=== PATIENT | female | born 1930 | race Caucasian/White ===

== ENCOUNTER 2018-01-14 09:39 | Inpatient (IN) | payer OTHER ==
[~2018-01-14] VITALS: Ht 154.9 cm; Wt 42.6 kg
[~2018-01-14 09:39] MED LIST: ASPIR 8181 MG PO; ATIVAN1 MG PO; CARVEDILOL3.125 MG PO; COZAAR 50 MG TA50 M2 PO; LEVO-T88 MCG PO; SIMVASTATIN40 MG PO; VITAMIN D-32000 UNI1 PO
[2018-01-14 09:49] VITALS: BP 146/79
[2018-01-14 09:57] LABS: ABSOLUTE BASOPHILS 0.1 thou/uL (0.0-0.2); ABSOLUTE LYMPHOCYTES 2.9 thou/uL (0.8-5.3); ABSOLUTE MONOCYTES 0.6 thou/uL (0.0-1.2); ABSOLUTE NEUTROPHILS 5.4 thou/uL (1.6-8.1); BASOPHILS 1.2 %; EOSINOPHILS 0.4 %; HEMATOCRIT 39.3 % (37.0-47.0); HEMOGLOBIN 13.2 gm/dL (12.0-15.0); LYMPHOCYTES 32.4 %; MCH 33.2 pg (26.0-34.0); MCHC 33.6 g/dL (28.0-37.0); MCV 98.6 fL (80.0-100.0); MONOCYTES 6.2 %; MPV 7.4 fl. (7.2-11.1); NUCLEATED RBCS 0 /100WBC; PLATELET COUNT* 241 thou/uL (150-400); POLYS 59.8 %; RBC 3.98 mil/uL (4.20-5.00); RDW-CV 14.6 % (10.5-14.5)
[2018-01-14] MEDS ORDERED: ZOCOR20 MG PO (10:04)
[2018-01-14] MEDS ORDERED: VICODIN HP 10-1 EAC1 PO (10:05)
[2018-01-14] MEDS ORDERED: XARELTO15 MG PO (10:05)
[2018-01-14] MEDS ORDERED: MELATONIN5 M1 PO (10:05)
[2018-01-14 10:06] LABS: APTT 31.5 Seconds (25.0-31.3); CALCIUM 8.4 mg/dL (8.5-10.1); CREATININE 1.4 mg/dL (0.6-1.3); INR 1.1; PROTIME 10.9 Seconds (9.20-11.50)
[2018-01-14 10:26] LABS: ALBUMIN 3.5 g/dL (3.4-5.0); CK-MB MASS 34.7 ng/mL (<0.5-3.6); MAGNESIUM 1.9 mg/dL (1.8-2.4); TOTAL BILIRUBIN 0.5 mg/dL (<0.1-1.0); TOTAL PROTEIN 6.7 g/dL (6.4-8.2); TROPONIN-I LEVEL 0.1 ng/mL (<0.06)
[2018-01-14 11:47] VITALS: BP 130/82
[2018-01-14 12:10] VITALS: BP 166/91
[2018-01-14 15:53] VITALS: BP 117/67
[2018-01-14 20:00] VITALS: BP 156/94
[2018-01-14 23:34] VITALS: BP 122/60
[2018-01-15 03:47] VITALS: BP 104/63
[2018-01-15 08:09] VITALS: BP 125/71
[2018-01-15 11:37] VITALS: BP 154/82
--- NOTE | 2018-01-15 13:52 | 2DMMODE ---
[place] [address] 2 D/M-MODE ECHOCARDIOGRAM Name: YADIRA PERALTA Room: [facility] IN [facility]#: [id number] Admission: 01/14/18 Attend Phys: Alvarez Oneil Discharge: Date of : [birth year] Date of Service: 01/15/18 1352 Report #: [id number] THIS REPORT FOR: //name// APPROVED REPORT Study performed: 01/15/2018 10:56:54 EXAM: Comprehensive 2D, Doppler, and color-flow Echocardiogram Patient Location: In-Patient Room #: [facility] Status: routine BSA: 1.38 HR: 61 bpm BP: 125/71 mmHg Rhythm: NSR Other Information Study Quality: Good Indications Congestive Heart Failure Atrial Fibrillation Dyspnea 2D Dimensions LVEF(%): 66.19 (>50%) IVSd: 10.63 (7-11mm) LVOT Diam: 17.39 (18-24mm) LVDd: 36.66 mm PWd: 8.87 (7-11mm) Ascending Ao: 29.33 (22-36mm) LVDs: 23.55 (25-40mm) Aortic Root: 29.75 mm Sarmiento's LVEF: 66.19 % Volumes Left Atrial Volume (Systole) LA ESV Index: 28.30 mL/m2 Aortic Valve AoV Peak Herber.: 1.02 m/s AO Peak Gr.: 4.15 mmHg LVOT Max P.82 mmHg AO Mean Gr.: 2.47 mmHg LVOT Mean P.89 mmHg LVOT Max V: 0.98 m/s AO V2 VTI: 18.63 cm LVOT Mean V: 0.63 m/s HALIE (VTI): 2.48 cm2 LVOT V1 VTI: 19.42 [place] [address] 2 D/M-MODE ECHOCARDIOGRAM Name: YADIRA PERALTA Room: [address] IN .R.#: [id number] Admission: 01/14/18 Attend Phys: Alvarez Oneil Discharge: Date of : 11/10/[birth year] Date of Service: 01/15/18 1352 Report #: [id number] Mitral Valve E/A Ratio: 0.39 MV Decel. Time: 249.06 ms MV E Max Herber.: 0.50 m/s MV PHT: 72.23 ms MVA (PHT): 3.05 cm2 TDI E/Lateral E': 7.14 E/Medial E': 8.33 Medial E' Herber.: 0.06 m/s Lateral E' Herber.: 0.07 m/s Pulmonary Valve PV Peak Herber.: 0.61 m/s PV Peak Gr.: 1.46 mmHg Tricuspid Valve TR Peak Gr.: 20.33 mmHg RVSP: 25.00 mmHg Left Ventricle The left ventricle is normal size. There is normal LV segmental wall motion. There is normal left ventricular wall thickness. Left ventricular systolic function is normal. The left ventricular ejection fraction is within the normal range. LVEF is 60-65%. Grade I - abnormal relaxation pattern. Right Ventricle The right ventricle is normal size. The right ventricular systolic function is normal. Pacemaker lead is present in the right ventricle. Atria The left atrium size is normal. The right atrium size is normal. Aortic Valve Mild aortic valve sclerosis. No aortic regurgitation is present. There is no aortic valvular stenosis. Mitral Valve Moderate mitral annular calcification. Trace mitral regurgitation. No evidence of mitral valve stenosis. Tricuspid Valve The tricuspid valve is normal in structure. Mild tricuspid regurgitation. The RVSP is ____25___ [place] [address] 2 D/M-MODE ECHOCARDIOGRAM Name: FABIANYADIRA Room: [address] IN M.R.#: [id number] Admission: 01/14/18 Attend Phys: Alvarez Oneil Discharge: Date of : 11/10/[birth year] Date of Service: 01/15/18 1352 Report #: [id number] The pulmonary valve is normal in structure. There is no pulmonic valvular regurgitation. Great Vessels The aortic root is normal in size. IVC is normal in size and collapses with >50% inspiration Pericardium There is no pericardial effusion. <Conclusion> The left ventricle is normal size. There is normal left ventricular wall thickness. Left ventricular systolic function is normal. The left ventricular ejection fraction is within the normal range. LVEF is 60-65%. Grade I - abnormal relaxation pattern. The right ventricle is normal size. The left atrium size is normal. Mild aortic valve sclerosis. No aortic regurgitation is present. There is no aortic valvular stenosis. Moderate mitral annular calcification. Trace mitral regurgitation. No evidence of mitral valve stenosis. The tricuspid valve is normal in structure. Mild tricuspid regurgitation. The RVSP is ____25___ mmHg. IVC is normal in size and collapses with >50% inspiration There is no pericardial effusion. There is normal LV segmental wall motion. <ELECTRONICALLY SIGNED> By: Magan Blackmon MD, FACC 01/15/18 1352 135 135 Magan Blackmon MD, FACC /INF
--- NOTE | 2018-01-15 14:07 | EKG ---
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: Kelsie DING : 1930 Requested By: Silvio Vanegas Order Number: [id number] MD: Magan Blackmon Measurements Intervals [place] Rate: 78 P: -1 SD: 68 QRS: -60 QRSD: 128 T: 125 QT: 423 QTc: 482 Interpretive Statements Atrial-ventricular dual-paced rhythm No further analysis attempted due to paced rhythm Compared to ECG 08/23/2017 08:43:59 No significant changes Electronically Signed On 01-15-2018 14:07:08 CDT by Magan Blackmon [email or web address] <ELECTRONICALLY SIGNED> By: Magan Blackmon MD, [facility] 01/15/18 1407 0947 0947 Magan Blackmon MD, [facility] /EPI
--- NOTE | 2018-01-15 14:27 | EKG ---
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: 27 : 1930 Requested By: Dallas Groves Order Number: [id number] Anupam REESE: Magan Blackmon Measurements Intervals [place] Rate: 61 P: 8 MA: 214 QRS: -52 QRSD: 114 T: 117 QT: 464 QTc: 468 Interpretive Statements Atrial-sensed ventricular-paced complexes No further analysis attempted due to paced rhythm Compared to ECG 08/23/2017 08:43:59 No significant changes Electronically Signed On 01-15-2018 14:27:18 CDT by Magan Blackmon [email or web address] <ELECTRONICALLY SIGNED> By: Magan Blackmon MD, [facility] 01/15/18 1427 0821 0 Magan Blackmon MD, [facility] /EPI
[2018-01-15 15:40] VITALS: BP 118/68
[2018-01-15 23:00] VITALS: BP 97/59
[2018-01-16 04:00] VITALS: BP 96/57
[2018-01-16 08:28] VITALS: BP 127/75
[2018-01-16 12:27] VITALS: BP 114/60
[2018-01-16] MEDS ORDERED: MARINOL2.5 MG PO (14:16)
[2018-01-16 14:36] VITALS: BP 114/60
[2018-01-16] MEDS ORDERED: SORINE 80 MG TA80 M1 PO (14:44)
--- NOTE | 2018-01-17 09:11 | EKG ---
[place] [address] ELECTROCARDIOGRAM REPORT Name: YADIRA PERALTA Room: [address] DIS IN M.R.#: [id number] Admission: 01/14/18 Attend Phys: Alvarez Coleman, Discharge: 01/16/18 Date of : [birth year]/10/[birth year] Report #: [id number] THIS REPORT FOR: //name// [facility] Test Date: 2018-01-16 Test Time: 08:21:40 Pat Name: YADIRA PERALTA Department: Room: [address] Gender: F Top Polisher: : 1930 Requested By: Dallas Groves Order Number: [id number] Anupam MD: Dallas Groves Measurements Intervals [place] Rate: 58 P: 47 [place]: 151 QRS: -75 QRSD: 134 T: 85 QT: 515 QTc: 506 Interpretive Statements Atrial-ventricular dual-paced rhythm No further analysis attempted due to paced rhythm Baseline wander in lead(s) V6 Compared to ECG 01/15/2018 08:21:25 Atrial-sensed ventricular-paced complex(es) or rhythm no longer present Electronically Signed On 01-17-2018 9:11:05 CDT by Dallas Groves [email or web address] <ELECTRONICALLY SIGNED> By: Dallas Groves MD, FACC 01/17/18910 0 0 Dallas Groves MD, FACC /EPI
--- NOTE | 2018-01-22 12:50 | CON ---
[address] [address] CONSULTATION Name: YADIRA PERALTA Room: [address] IN M.R.#: [id number] Admission: 01/14/18 Attend Phys: Alvarez Coleman, Discharge: 01/16/18 Date of : [birth year]/10/[birth year] Report #: [id number] THIS REPORT FOR: //name// CC: Jorge Coleman TYPE OF REPORT: Cardiology consultation. INDICATION: Paroxysmal atrial fibrillation. 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 The patient was recently seen in the office and found to have new-onset atrial flutter. With this, she had significant weakness and dyspnea. She was scheduled to be electively admitted to the hospital today for sotalol loading. She presented to the Emergency Room yesterday stating her weakness had become far worse and more profound and was admitted to the hospital at that time. She has been started on sotalol. She is now in an AV sequentially paced rhythm by monitor. She states she feels better already. She has been started on anticoagulant. She is without cardiac complaint at this time. PAST MEDICAL HISTORY: 1. AV block status post dual-chamber pacemaker placement. 2. Essential hypertension. 3. Hyperlipidemia. 4. Carotid disease. 5. History of SVT remotely. PAST SURGICAL HISTORY: 1. Previous cholecystectomy. 2. Previous hysterectomy. FAMILY HISTORY: The patient's father had a heart attack. SOCIAL HISTORY: The patient is a lifelong nonsmoker. She does not drink alcohol. ALLERGIES: SULFA and CEFDINIR. CURRENT MEDICATIONS: Carvedilol 3.125 mg p.o. b.i.d., vitamin D 2000 units 1 daily, Vicodin 10/300 q. 4-6 hours p.r.n., levothyroxine 88 mcg daily, lorazepam 1 mg at bedtime, losartan 100 mg daily, melatonin 5 mg as directed, Xarelto 15 mg daily and simvastatin 20 mg at bedtime. REVIEW OF SYSTEMS: She reports a decreased appetite [place] [address] CONSULTATION Name: YADIRA PERALTA HELENA Room: [address]#: [id number] Admission: 01/14/18 Attend Phys: Alvarez Coleman, Discharge: 01/16/18 Date of : [birth year]/10/[birth year] Report #: [id number]. She reports dyspnea on exertion. She reports a cough that is nonproductive and shortness of breath. She reports dizziness and lightheadedness. A 14-point review of systems was otherwise unremarkable. PHYSICAL EXAMINATION: VITAL SIGNS: Blood pressure 118/68 and pulse 60 and regular. GENERAL: This is a pleasant elderly female, in no distress. Mood and affect appropriate. HEENT: Extraocular muscles intact. Mucous membranes are moist. NECK: Shows no jugular venous distention. There are no carotid bruits. CHEST: Reveals clear lung sounds without wheezes or rales. CARDIAC: Reveals a regular rhythm without gallop or murmur. ABDOMEN: Reveals normal bowel sounds. The abdomen is soft and nontender. EXTREMITIES: Shows no edema. Peripheral pulses palpable. SKIN: Warm and dry. IMPRESSION AND RECOMMENDATIONS: 1. New onset/paroxysmal atrial flutter. The patient is now in sinus rhythm on sotalol. Continue sotalol loading. Repeat EKG in a.m. and plan for discharge if her EKG remained stable. 2. Status post dual-chamber pacemaker placement for heart block. Remote interrogation shows normal function. 3. Hypertension. Blood pressure adequately controlled presently. We will follow. 4. Hyperlipidemia. Continue current statin agent. 5. Hypothyroidism, on replacement therapy. <ELECTRONICALLY SIGNED> By: Dallas Groves MD, FACC 01/22/18 1250 1651 2214Micalbertina Groves MD, FACC /nt
== END 2018-01-16 15:00 | disposition home health service (06) | DRG 309 ==
LOC: M.ERS 09:39 → M.TBA-ER 10:23 → M.2W 10:23
PROVIDERS: Family Medicine; ADMIT Family Medicine
DX: I48.0 Paroxysmal atrial fibrillation (principal); D68.59 Other primary thrombophilia; Z88.2 Allergy status to sulfonamides; I48.92 Unspecified atrial flutter; I49.5 Sick sinus syndrome; K21.9 Gastro-esophageal reflux disease without esophagitis; M81.0 Age-related osteoporosis without current pathological fracture; E78.5 Hyperlipidemia, unspecified; E03.9 Hypothyroidism, unspecified; Z79.01 Long term (current) use of anticoagulants; J45.909 Unspecified asthma, uncomplicated; Z95.0 Presence of cardiac pacemaker; Z90.49 Acquired absence of other specified parts of digestive tract; Z90.710 Acquired absence of both cervix and uterus; Z79.899 Other long term (current) drug therapy; Z88.8 Allergy status to other drugs, medicaments and biological substances; Z82.49 Family history of ischemic heart disease and other diseases of the circulatory system; I12.9 Hypertensive chronic kidney disease with stage 1 through stage 4 chronic kidney disease, or unspecified chronic kidney disease; N18.3 Chronic kidney disease, stage 3 (moderate)

== ENCOUNTER 2019-01-15 08:38 | Inpatient (IN) | payer OTHER ==
[~2019-01-15] VITALS: Ht 157.5 cm; Wt 50.3 kg
[~2019-01-15 08:38] MED LIST changes: -COZAAR 50 MG TA50 M2 PO; +COZAAR 50 MG TA50 MG PO; +MARINOL2.5 MG PO; +MELATONIN5 M1 PO; +SORINE 80 MG TA80 M1 PO; +VICODIN HP 10-1 EAC1 PO; +XARELTO15 MG PO; +ZOCOR20 MG PO
[2019-01-15 08:41] VITALS: BP 131/74
[2019-01-15] MEDS ORDERED: LASIX 20 MG TAB20 MG PO (08:59)
[2019-01-15] MEDS ORDERED: KLOR-CON 1010 MEQ PO (08:59)
[2019-01-15] MEDS ORDERED: ELIQUIS2.5 MG PO (08:59)
[2019-01-15 09:00] LABS: ABSOLUTE BASOPHILS 0.1 thou/uL (0.0-0.2); ABSOLUTE EOSINOPHILS 0.1 thou/uL (0.0-0.7); ABSOLUTE LYMPHOCYTES 3.4 thou/uL (0.8-5.3); ABSOLUTE MONOCYTES 0.6 thou/uL (0.0-1.2); ABSOLUTE NEUTROPHILS 4.7 thou/uL (1.6-8.1); BASOPHILS 0.8 %; EOSINOPHILS 1.5 %; HEMOGLOBIN 13.3 gm/dL (12.0-15.0); MCH 33.1 pg (26.0-34.0); MCHC 33.2 g/dL (28.0-37.0); MCV 99.5 fL (80.0-100.0); MONOCYTES 6.7 %; MPV 8.6 fl. (7.2-11.1); NUCLEATED RBCS 0 /100WBC; PLATELET COUNT* 255 thou/uL (150-400); RBC 4.01 mil/uL (4.20-5.00); WBC 8.9 thou/uL (4.0-11.0)
[2019-01-15 09:05] LABS: ANION GAP 9 mmol/L (7-16); BUN 57 mg/dL (7-18); CALCIUM 9.3 mg/dL (8.5-10.1); CHLORIDE 104 mmol/L (98-107); CO2 28 mmol/L (21-32); CREATININE 2.2 mg/dL (0.6-1.3); GLUCOSE 101 mg/dL (70-99); POTASSIUM 4.6 mmol/L (3.5-5.1); SODIUM 141 mmol/L (136-145)
[2019-01-15 09:15] LABS: ALBUMIN 3.8 g/dL (3.4-5.0); ALKALINE PHOSPHATASE 49 U/L (46-116); NT-PRO BRAIN NAT PEPTIDE 1178 pg/mL (<300); SGOT 17 U/L (15-37); SGPT 20 U/L (30-65); TOTAL BILIRUBIN 0.4 mg/dL (<0.1-1.0); TOTAL PROTEIN 7.3 g/dL (6.4-8.2); TROPONIN-I LEVEL <0.06 ng/mL (<0.06)
[2019-01-15 09:30] LABS: APTT 30.1 Seconds (25.0-31.3); PROTIME 10.4 Seconds (9.20-11.50)
--- NOTE | 2019-01-15 09:33 | NUR ---
RT AT BEDSIDE ADMINISTERING BREATHING TREATMENT
[2019-01-15 15:56] VITALS: BP 93/56
--- NOTE | 2019-01-15 15:56 | NUR ---
REPORT GIVEN TO TRANG HERNANDEZ WHO IS TO ASSUME PT CARE INPATIENT NURSE.
[2019-01-15 16:10] VITALS: BP 89/54
--- NOTE | 2019-01-15 16:30 | NUR ---
PT ARRIVED TO UNIT AT APPROX 1610, A&O X4, HYPOTENSIVE, RA, LS CTA, DENIES ANY OR SOA AT THIS TIME, PANEL MAKER TRACING SINUS RHYTHM. PT ORIENTED TO ROOM AND CALL LIGHT, DAUGHTERS AT BEDSIDE.
--- NOTE | 2019-01-15 17:02 | EKG ---
[place] [address] ELECTROCARDIOGRAM REPORT Name: YADIRA PERALTA Room: [address] ADM IN .R.#: [id number] Admission: 01/15/19 Attend Phys: Fran Lozoya Discharge: Date of : [birth year] Report #: [id number] THIS REPORT FOR: //name// [facility] ED Test Date: 2019-01-15 Test Time: 08:50:16 Pat Name: YADIRA PERALTA Department: Room: [facility] Gender: F Senior Project Architect: Kelsie DING : 1930 Requested By: Miguel Encarnacion Order Number: [id number] MD: Dallas Groves Measurements Intervals [place] Rate: 74 P: 108 CA: 168 QRS: -72 QRSD: 136 T: 81 QT: 508 QTc: 564 Interpretive Statements Atrial-ventricular dual-paced rhythm No further analysis attempted due to paced rhythm Compared to ECG 01/16/2018 08:21:40 No significant changes Electronically Signed On 01-15-2019 17:02:42 CDT by Dallas Groves [email or web address] <ELECTRONICALLY SIGNED> By: Dallas Groves MD, FAC 01/15/19 1702 0850 0850 Dallas Groves MD, [facility] /EPI
[2019-01-15 20:00] VITALS: BP 123/93
[2019-01-16] VITALS: BP 91/57
[2019-01-16 04:00] VITALS: BP 129/77
--- NOTE | 2019-01-16 05:59 | NUR ---
ASSUMED PT CARE AT 1930. ASSESSMENT COMPLETED CHARTED. ABLE TO MAKE NEEDS KNOWN. NO C/O PAIN OR DISCOMFORT. RESTING IN BED WITH DAUGHTER IN ROOM ON A COT. UP WITH SBA WITH WALKER. NO C/O SOA, RA. WILL CONTINUE TO MONITOR.
[2019-01-16 08:00] VITALS: BP 119/78
--- NOTE | 2019-01-16 10:34 | EKG ---
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: [facility] : 1930 Requested By: Myles Mcfarland Order Number: [id number] Anupam MD: Magan Blackmon Measurements Intervals [place] Rate: 76 P: 161 [place]: 159 QRS: -82 QRSD: 137 T: 85 QT: 493 QTc: 555 Interpretive Statements Atrial-ventricular dual-paced rhythm No further analysis attempted due to paced rhythm Compared to ECG 01/15/2019 08:50:16 No significant changes Electronically Signed On 01-16-2019 10:34:22 CDT by Magan Blackmon [email or web address] <ELECTRONICALLY SIGNED> By: Magan Blackmon MD, [facility] 01/16/19 1034 31 31 Magan Blackmon MD, [facility] /EPI
[2019-01-16 11:42] VITALS: BP 163/90
--- NOTE | 2019-01-16 12:25 | NUR ---
MET WITH PT TO DISCUSS HOME SITUATION/DC PLANNING. PT OFF UNIT FOR TEST. DTR/KASSIE ANSWERED QUESTIONS. PT LIVE ALONE. DTRS ARE DPOA AND LIVE CLOSEBY. 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 PT USES WALKER, SHOWER BENCH AND LIFELINE. SHE DOESN'T GET OUT MUCH OTHER THEN FAMILY EVENTS OR DR/BEAUTY SHOP. PT HAS HAD HH IN PAST WITH [facility]. DTR WOULD LIKE HER TO HAVE HH AT [place] BUT NOT SURE PT WILL AGREE. WILL DISCUSS WITH PT WHEN ABLE AND FOLLOW
--- NOTE | 2019-01-16 13:36 | 2DMMODE ---
[place] [address] 2 D/M-MODE ECHOCARDIOGRAM Name: YADIRA PERALTA Room: [address] IN [facility]#: [id number] Admission: 01/15/19 Attend Phys: Myles Mcfarland Discharge: Date of : [birth year] Date of Service: 01/16/19 1336 Report #: [id number] THIS REPORT FOR: //name// APPROVED REPORT Study performed: 01/16/2019 11:45:08 EXAM: Comprehensive 2D, Doppler, and color-flow Echocardiogram Patient Location: In-Patient Room #: [facility] Status: routine BSA: 1.50 HR: 80 bpm BP: 119/78 mmHg Rhythm: NSR Other Information Study Quality: Good Indications Dyspnea 2D Dimensions IVSd: 10.94 (7-11mm) LVOT Diam: 17.11 (18-24mm) LVDd: 37.36 mm PWd: 8.78 (7-11mm) Ascending Ao: 29.11 (22-36mm) LVDs: 23.75 (25-40mm) Aortic Root: 29.37 mm Volumes Left Atrial Volume (Systole) LA ESV Index: 41.60 mL/m2 Aortic Valve AoV Peak Herber.: 0.80 m/s AO Peak Gr.: 2.54 mmHg LVOT Max P.55 mmHg AO Mean Gr.: 1.53 mmHg LVOT Mean P.02 mmHg LVOT Max V: 0.62 m/s AO V2 VTI: 14.08 cm LVOT Mean V: 0.49 m/s HALIE (VTI): 2.04 cm2 LVOT V1 VTI: 12.51 cm Mitral Valve E/A Ratio: 0.73 MV Decel. Time: 208.08 ms MV E Max Herber.: 0.71 m/[place] [address] 2 D/M-MODE ECHOCARDIOGRAM Name: YADIRA PERALTA Room: [address] IN .R.#: [id number] Admission: 01/15/19 Attend Phys: Myles Mcfarland Discharge: Date of : [birth year] Date of Service: 01/16/19 1336 Report #: [id number] MV PHT: 60.34 ms MVA (PHT): 3.65 cm2 TDI E/Lateral E': 10.14 E/Medial E': 14.20 Medial E' Herber.: 0.05 m/s Lateral E' Herber.: 0.07 m/s Tricuspid Valve RAP Estimate: 5.00 mmHg TR Peak Gr.: 16.86 mmHg RVSP: 21.00 mmHg PA Pressure: 21.00 mmHg Left Ventricle The left ventricle is normal size. There is normal LV segmental wall motion. There is normal left ventricular wall thickness. Left ventricular systolic function is normal. The left ventricular ejection fraction is within the normal range. LVEF is 55-60%. Grade I - abnormal relaxation pattern. Right Ventricle The right ventricle is normal size. The right ventricular systolic function is normal. Pacemaker lead is present in the right ventricle. Atria Left atrium is moderately dilated. The right atrium size is normal. Aortic Valve Mild aortic valve sclerosis. No aortic regurgitation is present. There is no aortic valvular stenosis. Mitral Valve Moderate mitral annular calcification. Mild mitral regurgitation. No evidence of mitral valve stenosis. Tricuspid Valve The tricuspid valve is normal in structure. Mild tricuspid regurgitation. No pulmonary hypertension. Pulmonic Valve Pulmonic valve is not well visualized. Great Vessels The aortic root is normal in size. IVC is normal in size and collapses >50% [place] [address] 2 D/M-MODE ECHOCARDIOGRAM Name: YADIRA PERALTA Room: [address] IN [facility]#: [id number] Admission: 01/15/19 Attend Phys: Myles Mcfarland Discharge: Date of : [birth year]/10/[birth year] Date of Service: 01/16/19 1336 Report #: [id number] Pericardium There is no pericardial effusion. <Conclusion> The left ventricle is normal size. There is normal left ventricular wall thickness. Left ventricular systolic function is normal. The left ventricular ejection fraction is within the normal range. LVEF is 55-60%. Grade I - abnormal relaxation pattern. The right ventricle is normal size. Left atrium is moderately dilated. Mild aortic valve sclerosis. No aortic regurgitation is present. There is no aortic valvular stenosis. Moderate mitral annular calcification. Mild mitral regurgitation. No evidence of mitral valve stenosis. The tricuspid valve is normal in structure. IVC is normal in size and collapses >50% with inspiration. There is no pericardial effusion. There is normal LV segmental wall motion. Pacemaker lead is present in the right ventricle. <ELECTRONICALLY SIGNED> By: Magan Blackmon MD, FACC 01/16/19 1336 1336 1336 Magan Blackmon MD, FACC /INF
[2019-01-16 14:37] LABS: CALCIUM 9.6 mg/dL (8.5-10.1); CREATININE 1.9 mg/dL (0.6-1.3); POTASSIUM 4.3 mmol/L (3.5-5.1)
--- NOTE | 2019-01-16 15:30 | NUR ---
Nutrition: consulted re. ideas for 2 gm Na. Pt stated she has a good understanding of 2 gm Na diet but her typical intake is frozen meals. Pt stated she is going to try to do more cooking. RD explained that pt can cook most recipes she will just need to reduce/omit the salt and substitute canned ingredients for fresh or GRISELDA.
--- NOTE | 2019-01-16 15:36 | NUR ---
ASSUMED PT CARE 0730. AOX4, UP WITH ASSIST. 02 SAT AT 90'S. TRACING A PACED, BBB ON TAX ATTORNEY. PT NPO. PT FOR STRESS TEST, CARDIAC ECHO. PT DENIES PAIN. LAST BM 01/15/19, ABDOMEN SOFT AND ROUND. IV ACCESS INTACT. VSS, AM ASSESSMENT CHARTED. HOURLY ROUNDING OBSERVED, CALL LIGHT WITHIN REACH. WILL CONTINUE TO MONITOR.
[2019-01-16 15:40] VITALS: BP 110/59
--- NOTE | 2019-01-16 16:19 | CARDNUC ---
[place] [address] CARDIAC NUCLEAR IMAGING REPORT Name: YADIRA PERALTA Room: [address] IN [facility]#: [id number] Admission: 01/15/19 Attend Phys: Myles Mcfarland Discharge: Date of : [birth year] Date of Service: 01/16/19 1618 Report #: [id number] THIS REPORT FOR: //name// APPROVED REPORT Imaging Protocol: Rest Tc-99m/Stress Tc-99m 1 day Study performed: 01/15/2019 16:53:00 Indication: Dyspnea, Edema, increased Fatigue. Patient Location: In-Patient Room #: [facility] Stress Tech: Bibiana Mena Stress Nurse: Padma Butt RN NM Tech:DAVINA Barry Ht: 5 ft 2 in Wt: 113 lbs BSA: 1.50 m2 BMI: 20.66 Medical History Medical History: Atrial Fibrillation, Arrhythmia, Fatigue, HTN, Hyperlipidemia, ICD, SOB, Weakness, Edema. Medications: Eliquis, Lipitor, (home meds incl. Klor-Con, Lasix, Cozaar, Sotalol) Allergies: Sulfa ABT, Mold. Cardiac Risk Factors: Age, FHX of CAD, HTN, Hyperlipidemia, SOB, AFib. Previous Cardiac Procedures: None Pretest Chest Pain Characteristics: No chest pain Exercise History: Sedentary Physical Disabilities: AFib, Generalized weakness/fatigue, unstable gait, AV Paced. Meds Held (24 hrs): None Resting Data Rest SPECT myocardial perfusion imaging was performed in supine position 30 minutes following the intravenous injection of 11.8 mCi of Tc-99m Sestamibi. Time of rest injection: 944 Date: 01/16/2019 The images were gated to evaluate regional wall motion and calculate left ventricular ejection fraction. Administration Route: IV Administration Site: Left AC Pharmacologic Stress Pharmacologic stress test was performed by injecting Regadenoson 0.4 [place] [address] CARDIAC NUCLEAR IMAGING REPORT Name: YADIRA PERALTA Room: [address] IN [facility]#: [id number] Admission: 01/15/19 Attend Phys: Myles Mcfarland Discharge: Date of : [birth year] Date of Service: 01/16/19 1618 Report #: [id number] mg IV push over 10-15 seconds immediately followed by the intravenous injection of 36.0 mCi of Tc-99m Sestamibi. Time of stress injection: 1104 Date: 01/16/2019 Administration Route: IV Administration Site: Left AC Gated Stress SPECT was performed 40 minutes after stress injection. The images were gated to evaluate regional wall motion and calculate left ventricular ejection fraction. Prone imaging was performed. Stress Test Details Stress Test: Pharmacologic stress testing performed using 0.4 mg of regadenoson per 5 mL given IV over 10 seconds. Reason for pharmacologic stress test: physical limitation, AFib, generalized weakness, AV Paced.. HR Max Heart Rate (APMHR): 132 bpm Resting HR: 78 bpm Target HR (85% APMHR): 112 bpm Max HR Achieved: 98 bpm % of APMHR: 74 Recovery HR: 82 bpm HR response to stress: Normal HR response to stress BP Resting BP: 120/87 mmHg Max BP: 101/68 mmHg Recovery BP: 116/83 mmHg BP response to stress: Normal blood pressure response to stress. ECG Resting ECG: paced Stress ECG: paced ST Change: none Arrhythmia: none Recovery ECG: paced Recovery ST Change: paced Recovery Arrhythmia: none Clinical Reason for Termination: Completed protocol Stress Symptoms: Dyspnea, Dizziness, Lightheaded. Exercise duration: 0 min 0 sec Exercise capacity: 1.00 METs [place] [address] CARDIAC NUCLEAR IMAGING REPORT Name: YADIRA PERALTA Room: [address]#: [id number] Admission: 01/15/19 Attend Phys: Myles Mcfarland Discharge: Date of : [birth year]/10/[birth year] Date of Service: 01/16/19 1618 Report #: [id number] 88 year old female inpatient presented with recent HX of increased SOA, fatigue, weakness and edema. Patient tolerated sitting Lexiscan well with AV Paced ECG. Recovery unremarkable with PO caffeine. Patient was escorted via wheelchair by staff back to her room, floor nurse notified that patient could eat lunch then go to Nuclear Medicine for images. Patient was stable with no complaints when left on . Stress ECG Conclusion nondiagnostic due to paced rhythm Study Quality Study: Good Artifact: No artifact Lung Uptake: Normal Study Data At rest, the left ventricular ejection fraction was 75%.. Post stress, the left ventricular ejection was 78%.. SSS: 00 SRS: 0 SDS: 0 TID = 1.20. Perfusion Review of rest data reveals normal perfusion, without perfusion defects.Imaging obtained following vasodilator stress demonstrate a similar, uniform uptake of tracer without defects. Prone imaging was normal. LVEDV is normal.No segental wall motion abnormality seen. Wall Motion normal all segments Nuclear Conclusion ECG Findings: non-diagnostic Clinical Findings: negative for ischemia Nuclear Findings: negative for ischemia Exercise Capacity: not assessed Left Ventricular Function: normal Risk Study: low Negative perfusion nuclear stress test for ischemia/[place] [address] CARDIAC NUCLEAR IMAGING REPORT Name: YADIRA PERALTA Room: [address] IN [facility]#: [id number] Admission: 01/15/19 Attend Phys: Myles Mcfarland Discharge: Date of : [birth year] Date of Service: 01/16/19 1618 Report #: [id number] <Conclusion> nondiagnostic due to paced rhythm <ELECTRONICALLY SIGNED> By: Conor Valenzuela MD, FACC 01/16/191617 17 17 Conor Valenzuela MD, FACC /INF
--- NOTE | 2019-01-16 17:06 | NUR ---
I HAVE REVIEWED AND AGREE WITH THE ASSESMENT AND NOTE OF JUAN PABLO Chicas RN ON 01/16/19
--- NOTE | 2019-01-16 17:47 | NUR ---
PT STATES SHE IS WANTING TO GO HOME, CARDIOLOGY OK WITH DC TODAY. SPOKE TO , PT TO STAY ONE MORE NIGHT TO RECIEVE FLUID AND MONITOR LABS. PT AND DAUGHTER EDUCATED ON PLAN. VERBALIZED UNDERSTANDING.
--- NOTE | 2019-01-16 19:43 | NUR ---
PT AOX4, UP WTH ASSIST, DAUGHTER AT BEDSIDE ALL DAY. PT COMPLAINS OF NAUSEA, ZOFRAN GIVEN. PT HAD STRESS TEST, CARDIAC ECHO TODAY. PT FOR DISCHARGE. PROVIDER WANTS HER TO STAY TONIGHT. IV ACCESS INTACT AT AC. LAST BM 01/15/19. CALL LIGHT WITHIN REACH. ALL NEEDS MET AT THIS TIME. GIVE REPORT TO ANDREA COSTELLO. WILL CONTINUE TO MONITOR.
[2019-01-16 19:50] VITALS: BP 121/74
--- NOTE | 2019-01-17 03:50 | NUR ---
RECIEVED REPORT AND ASSUMED CARE [id number]. ORGAN GRINDER IN PLACE. VITAL SIGNS STABLE. PT IS UP ADLIB. PT DENIES ANY PAIN AT THIS TIME. ASSESSMENT COMPLETED DISCUSSED PLAN OF CARE AND PT UNDERSTANDS. BED LOCKED AND CALL LIGHT WITHIN REACH. FALL PRECAUTIONS IN PLACE. HOURLY ROUNDING DONE AND ALL NEEDS MET. NURSING WILL CONTINUE TO MONITOR.
[2019-01-17 04:00] VITALS: BP 130/85
[2019-01-17 05:43] LABS: CALCIUM 9.4 mg/dL (8.5-10.1); CREATININE 1.7 mg/dL (0.6-1.3); POTASSIUM 4.1 mmol/L (3.5-5.1)
[2019-01-17 08:00] VITALS: BP 130/86
[2019-01-17] MEDS ORDERED: OMEPRAZOLE20 M3 PO (10:11)
--- NOTE | 2019-01-17 10:41 | NUR ---
ASSUMED PT CARE AT 0730, AOX4, SBA WITH WALKER. O2 SAT 90'S RA. 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 IV ACCESS INTACT. LAST BM ON 01/14/19. ABDOMEN SOFT AND ROUND. PT SAYS SHE HAD A GOOD SLEEP LAST NIGHT, PT FOR DISCHARGE DENIES ANY PAIN. VSS, AM ASSESSMENT CHARTED. MEDS GIVEN PER MAR. CALL LIGHT WITHIN REACH. WILL CONTINUE TO MONITOR.
--- NOTE | 2019-01-17 11:20 | NUR ---
I HAVE REVIEWED AND AGREE WITH THE ASSESMENT AND NOTE OF JUAN PABLO Austin RN ON 01/17/19
--- NOTE | 2019-01-17 11:21 | NUR ---
RECIEVED DISCHARGE ORDERS, DISCUSSED WITH . PT AND DTR EDUCATED ON MED CHANGES AND F/U APPTS. PT AND DTR VERBALIZED UNDERSTANDING. PT TAKEN BY HARDIK AT APPROX 1100
--- NOTE | 2019-01-17 12:07 | NUR ---
CM sent referral to [facility], [place], . CM cofirmed receipt. [facility] will contact the pt to arrange time to visit. pt d/c to home today. CM to remain avail to assist if needed.
== END 2019-01-17 11:15 | disposition home health service (06) | DRG 291 ==
LOC: M.ERS 08:38 → M.2W 11:44 → M.TBA-ER 11:44 → M.2W 16:06
PROVIDERS: Emergency Medicine; ADMIT Internal Medicine
DX: I13.0 Hypertensive heart and chronic kidney disease with heart failure and stage 1 through stage 4 chronic kidney disease, or unspecified chronic kidney disease (principal); N17.0 Acute kidney failure with tubular necrosis; I50.33 Acute on chronic diastolic (congestive) heart failure; I48.92 Unspecified atrial flutter; I48.0 Paroxysmal atrial fibrillation; N18.9 Chronic kidney disease, unspecified; M81.0 Age-related osteoporosis without current pathological fracture; K21.9 Gastro-esophageal reflux disease without esophagitis; E78.5 Hyperlipidemia, unspecified; Z90.49 Acquired absence of other specified parts of digestive tract; Z95.0 Presence of cardiac pacemaker; Z90.710 Acquired absence of both cervix and uterus; Z88.2 Allergy status to sulfonamides; Z88.8 Allergy status to other drugs, medicaments and biological substances; Z79.899 Other long term (current) drug therapy